=== PATIENT | female | born 1990 | race Caucasian/White ===

== ENCOUNTER 2019-11-12 16:25 | Emergency (ER) | payer OTHER, SELFPAY ==
[2019-11-12 16:31] VITALS: BP 154/88; PULSE 114; RESP 20; TEMP 36.9; O2SAT 100
--- NOTE | 2019-11-12 17:09 | ED.DENTAL ---
HPI - Dental/Oral General Chief complaint: Dental/Oral <Collin Almazan PA-C - Last Filed: 11/12/19 17:15> Stated complaint: tootache <Collin Almazan PA-C - Last Filed: 11/12/19 17:15> Time Seen by Provider: 11/12/19 16:32 <Collin Almazan PA-C - Last Filed: 11/12/19 17:15> Source: patient <Collin Almazan PA-C - Last Filed: 11/12/19 17:15> Mode of arrival: ambulatory <Collin Almazan PA-C - Last Filed: 11/12/19 17:15> Limitations: no limitations <Collin Almazan PA-C - Last Filed: 11/12/19 17:15> History of Present Illness HPI Narrative: Patient is a 29-year-old female who presents to emergency department for evaluation of right upper posterior molar pain for the last several days with history of similar occurrence and decay denies any fever chills nausea vomiting has been taking [id number] medications with minimal improvement <Collin Almazan PA-C - Last Filed: 11/12/19 17:15> Related Data Allergies/adverse reactions: Allergies Allergy/AdvReac Type Severity Reaction Status Date / Time Penicillins Allergy Mild Rash Verified 05/12/19 23:15 <Collin Almazan PA-C - Last Filed: 11/12/19 17:15> Review of Systems Review of Systems: All systems reviewed & are unremarkable except as noted in HPI and below <Collin Almazan PA-C - Last Filed: 11/12/19 17:15> PMFSH Past Medical History Medical History: Medical History Gestational HTN 4 para 4 Knee pain, right PID (acute pelvic inflammatory disease) <Collin Almazan PA-C - Last Filed: 11/12/19 17:15> Surgical History Surgical History: Surgical History H/O LEEP <Collin Almazan PA-C - Last Filed: 11/12/19 17:15> Exam Narrative: Exam Narrative: GENERAL: Well-appearing, well-nourished, and in no acute distress. HEAD: Normocephalic, atraumatic. EYES: PERRLA and EOMI. ENT: Nares clear, no rhinorrhea or epistaxis. Mucous membranes moist. Oropharynx without tonsillar hypertrophy exudate or other lesions. B decayed to the right upper posterior molar no other abnormalities noted NECK: Supple. No adenopathy or masses. EXTREMITIES: Normal range of motion. No edema. SKIN: Warm, dry, no rash. NEURO: No focal deficits. Alert and oriented x3. PSYCH: Normal mood and affect. <Collin Almazan PA-C - Last Filed: 11/12/19 17:15> Course Course Emergency Course: Patient in the room in no distress aware of case findings treatment plan and diagnosis agreeing to follow-up as directed or to return if symptoms worsen or concerns <Collin Almazan PA-C - Last Filed: 11/12/19 17:15> Vital Signs Vital signs: Vital Signs Temperature 98.4 F 11/12/19 16:31 Pulse Rate 114 H 11/12/19 16:31 Respiratory Rate 20 11/12/19 16:31 Blood Pressure 154/88 H 11/12/19 16:31 Pulse Oximetry 100 11/12/19 16:31 Temperature 98.4 F 11/12/19 16:31 Pulse Rate 114 H 11/12/19 16:31 Respiratory Rate 20 11/12/19 16:31 Blood Pressure 154/88 H 11/12/19 16:31 Pulse Oximetry 100 11/12/19 16:31 <Collin Almazan PA-C - Last Filed: 11/12/19 17:15> Vital Signs Temperature 98.4 F 11/12/19 16:31 Pulse Rate 114 H 11/12/19 16:31 Respiratory Rate 20 11/12/19 16:31 Blood Pressure 154/88 H 11/12/19 16:31 Pulse Oximetry 100 11/12/19 16:31 Temperature 98.4 F 11/12/19 16:31 Pulse Rate 114 H 11/12/19 16:31 Respiratory Rate 20 11/12/19 16:31 Blood Pressure 154/88 H 11/12/19 16:31 Pulse Oximetry 100 11/12/19 16:31 <Vijaya Meneses MD - Last Filed: 11/12/19 17:25> MDM - Dental/Oral MDM Narrative Medical decision making narrative: Patients pain and complaint coupled with physical findings are consistent with dentalgia. There are no focal signs of space occupying lesions that are compromising to the airway. The floor of the mouth
[2019-11-12] MEDS: KETOROLAC (*BKC) 60 MG/2 ML VIAL IM (17:15)
== END 2019-11-12 17:23 | disposition home or self-care (01) ==
PROVIDERS: Emergency Provider Emergency Medicine
DX: K08.89 Other specified disorders of teeth and supporting structures (principal)
CPT/HCPCS: 96372; 99283; J1885

== ENCOUNTER 2020-08-15 16:24 | Emergency (ER) | payer OTHER, SELFPAY ==
[2020-08-15 17:09] VITALS: BP 135/106; PULSE 95; RESP 18; TEMP 36.6; O2SAT 100
[2020-08-15] MEDS: KETOROLAC (*BKC) 60 MG/2 ML VIAL IM (18:49)
--- NOTE | 2020-08-15 18:53 | ED.GENADULT ---
HPI - General Adult General Chief complaint: Back Pain/Injury Stated complaint: back pain Time Seen by Provider: 08/15/20 17:14 Source: patient and family Mode of arrival: ambulatory Limitations: no limitations History of Present Illness HPI narrative: Patient is a 30-year-old female who presents with low back pain that has been present for over a month has not been seen for this denies injury or trauma or illness has tried [id number]-[id number] medications with minimal improvement patient presents in no distress does not appear uncomfortable Related Data Allergies Allergy/AdvReac Type Severity Reaction Status Date / Time Penicillins Allergy Mild Rash Verified 08/15/20 17:25 Review of Systems Review of Systems: All systems reviewed & are unremarkable except as noted in HPI and below PMFSH Past Medical History Medical History (Updated 08/15/20 @ 18:57 by Collin Almazan PA-C) Gestational HTN 4 para 4 Knee pain, right PID (acute pelvic inflammatory disease) Surgical History Surgical History H/O LEEP Exam Narrative: Exam Narrative: GENERAL: Well-appearing, obese, and in no acute distress. HEAD: Normocephalic, atraumatic. EYES: PERRLA and EOMI. ENT: Nares clear, no rhinorrhea or epistaxis. Mucous membranes moist. CHEST: Clear to auscultation. No respiratory distress. No wheezes rales or rhonchi HEART: Regular rate and rhythm. No murmur heard. EXTREMITIES: Normal range of motion. No edema. Tenderness across the lower lumbar region no deformities noted SKIN: Warm, dry, no rash. NEURO: No focal deficits. Alert and oriented x3. Normal speech and gait PSYCH: Normal mood and affect. Course Vital Signs Vital signs: Vital Signs Temperature 97.9 F 08/15/20 17:09 Pulse Rate 95 08/15/20 17:09 Respiratory Rate 18 08/15/20 17:09 Blood Pressure 135/106 H 08/15/20 17:09 Pulse Oximetry 100 08/15/20 17:09 Temperature 97.9 F 08/15/20 17:09 Pulse Rate 95 08/15/20 17:09 Respiratory Rate 18 08/15/20 17:09 Blood Pressure 135/106 H 08/15/20 17:09 Pulse Oximetry 100 08/15/20 17:09 Medical Decision Making [facility] Narrative Medical decision making narrative: Patients pain is positional in nature and localized to back without signs of cord compression or cauda equina based on neurological exam, skeletal exam and history. No fever or other significant factors to suggest osteomyelitis or spinal epidural abscess. No symptoms or signs to suggest pain is referred from abdominal or / cardiopulmonary sources. No pulsatile masses noted on exam. Patient ambulates with steady gait and is stable for outpatient management given case findings. Vital Signs Vital Signs: Vital Signs Temperature 97.9 F 08/15/20 17:09 Pulse Rate 95 08/15/20 17:09 Respiratory Rate 18 08/15/20 17:09 Blood Pressure 135/106 H 08/15/20 17:09 Pulse Oximetry 100 08/15/20 17:09 Temperature 97.9 F 08/15/20 17:09 Pulse Rate 95 08/15/20 17:09 Respiratory Rate 18 08/15/20 17:09 Blood Pressure 135/106 H 08/15/20 17:09 Pulse Oximetry 100 08/15/20 17:09 Discharge Plan Discharge Clinical Impression: Acute bilateral low back pain Patient Disposition: Home, Self-Care Condition: Stable Instructions: Antibiotic Form, Acute Low Back Pain (ED) Additional Instructions: Medications as needed and prescribed. Limit lifting and bending. You may apply heat or cold to the area as needed. Follow up with your doctor for further care in the next 7 days. Contact your doctor or return to the emergency department if you develop problems with bladder or bowel function, weakness or loss of feeling in one or both of your legs, or any other serious concerns. Prescriptions: New naproxen [Naprosyn] 500 mg tablet 500 mg PO BID PRN (Reason: pain) Qty: 7 RF: 0 cyclobenzaprine 10 mg tablet 10 mg PO TID PRN (Reason: muscle spasm) Qt
[2020-08-15 19:01] LABS: Add Urine Microscopic? NO; Appearance Urine Clear (Clear); Bilirubin Urine Negative (Negative); Blood Urine Negative (Negative); Color Urine Yellow (Yellow); Glucose Urine UA Negative (Negative); Ketones Urine Negative (Negative); Leukocyte Esterase Ur Negative LEU/UL (Negative); Nitrate Urine Negative (Negative); Protein Urine Negative (Negative); Specific Grav Ur 1.023 (1.001-1.035); Urobilinogen Urine Negative mg/dL (<2.0)
[2020-08-15 19:10] VITALS: BP 128/84; PULSE 86; RESP 16; TEMP 36.4; O2SAT 100
== END 2020-08-15 19:11 | disposition home or self-care (01) ==
PROVIDERS: Emergency Medicine Emergency Medical Services; Emergency Provider Family Medicine
DX: M54.5 Low back pain (principal)
CPT/HCPCS: 81003; 96372; 99283; J1885